=== PATIENT | female | born 1950 | race American Indian/Alaskan Native ===

== ENCOUNTER 2017-03-07 09:33 | Emergency (ER) | payer MEDICARE ==
[2017-03-07 09:49] VITALS: BP 132/65
[2017-03-07 10:07] LABS: Basophils % (Auto) 0.2 % (0.0-1.8); Eosinophils % (Auto) 0.1 % (0.0-4.3); Hematocrit 41.9 % (30.3-42.9); Hemoglobin 13.8 gm/dl (10.1-14.3); Mean Corpuscular HGB Conc 33 % (30-34); Mean Corpuscular Hemoglobin 28 pg (28-32); Mean Corpuscular Volume 85 fl (79-97); Platelet Count 224 K/mm3 (140-440); Red Blood Count 4.94 M/mm3 (3.65-5.03); Red Cell Distribution Width 13.8 % (13.2-15.2); White Blood Count 4.2 K/mm3 (4.5-11.0)
[2017-03-07 10:26] LABS: Anion Gap 19 mmol/L; BUN/Creatinine Ratio 29; Blood Urea Nitrogen 20 mg/dL (7-17); Calcium 8.7 mg/dL (8.4-10.2); Carbon Dioxide 28 mmol/L (22-30); Chloride 93.8 mmol/L (98-107); Glucose 126 mg/dL (65-100); Potassium 3.7 mmol/L (3.6-5.0); Sodium 137 mmol/L (137-145)
[2017-03-07 10:58] LABS: Bacteria,Urine 1+ /HPF (Negative); Bilirubin,Urine NEG (Negative); Blood,Urine NEG (Negative); Ketones,Urine NEG (Negative); Leukocyte Esterase,Urine NEG (Negative); Mucus,Urine FEW /HPF; Nitrite,Urine NEG (Negative); Urobilinogen,Urine < 2.0 mg/dL (<2.0)
[2017-03-07] MEDS ORDERED: ZOFRAN IV ONE (12:08)
[2017-03-07] MEDS ORDERED: PEPCID IV ONE (12:08)
--- NOTE | 2017-03-07 12:08 | Emergency Department Report ---
Chief Complaint: Arrhythmia/Palpitations Stated Complaint: HEART PALPITATIONS Time Seen by Provider: 03/07/17 11:53 - HPI History of Present Illness: Patient is a 66-year-old female who is presenting with epigastric discomfort. Patient states that yesterday she ate at [employer]. Patient has epigastric pain and has had nausea vomiting since. Patient states that this point she is just having dry heaves. Patient states the discomfort in epigastrium is 4 out of 10. Patient states she has some palpitations this morning as well. Patient denies fever denies right upper quadrant pain she denies cough chest pain at this time. - ROS Review of Systems: Review of systems is negative other than those elements in the HPI - Exam Vital Signs: Vital Signs 03/07/17 09:44 Temperature 97.8 F Pulse Rate 87 Respiratory 18 Rate Blood Pressure 132/65 O2 Sat by Pulse 97 Oximetry Physical Exam: Focused physical exam patient's abdomen is mildly tender in the epigastrium no rebound or guarding normal bowel sounds chest clear to auscultation heart tones. Are normal with normal S1-S2 no murmurs gallops or rubs. Patient is alert and oriented 3 and is in no acute distress MSE screening note: Focused history and physical exam performed. Due to findings the following was ordered: Patient will be given on nausea medicine IV fluids basic labs will be checked. Ultrasound of her gallbladder will be done as well. ED Medical Decision Making - Lab Data Result diagrams: 03/07/17 09:52 03/07/17 09:52 ED Disposition for MSE Condition: Stable Referrals: ROBERTO KHALIL MD [Primary Care Provider] - 3-5 Days
[2017-03-07] MEDS ORDERED: NACL 0.9% 1000 ML 1,000 ML IV ONE (12:14)
--- NOTE | 2017-03-07 13:01 | Ultrasound Report ---
RIGHT UPPER QUADRANT ULTRASOUND: The gallbladder is sonolucent with no evidence of stones, polyps or wall thickening. The common duct is normal in caliber. The pancreas, right renal contour, parenchyma and hepatic parenchyma appear normal. IMPRESSION: Normal right upper quadrant ultrasound.
--- NOTE | 2017-03-07 13:03 | Emergency Department Report ---
ED General Adult HPI - General Chief complaint: Arrhythmia/Palpitations Stated complaint: HEART PALPITATIONS Time Seen by Provider: 03/07/17 11:53 Source: patient Mode of arrival: Ambulatory Limitations: No Limitations - History of Present Illness Initial comments: Patient is a 66-year-old -[place] female who presents for reflux 3 days eating fish [email or web address] from [employer] symptoms include heartburn bloating nausea vomiting last nausea and vomiting this a.m. patient is currently tolerating by mouth intake Pt notes nausea and heartburn onset 30 minutes after eating. No hx of MO, CVA or dx of GERD Onset/Timin -: Gradual Location: abdomen Radiation: other (epigastric ) Severity scale (0 -10): 4 Quality: burning Consistency: intermittent Improves with: other (npo) Worsens with: eating Associated Symptoms: nausea/vomiting, other (heart burn ) Treatments Prior to Arrival: none - Related Data Previous Rx's Medication Instructions Recorded Last Taken Type Dicyclomine [Bentyl] 10 mg PO TID #30 bottle 03/07/17 Unknown Rx Famotidine [Pepcid] 20 mg PO BID #60 tablet 03/07/17 Unknown Rx Ondansetron [Zofran Odt] 4 mg PO TID PRN #12 tab.rapdis 03/07/17 Unknown Rx Allergies Allergy/AdvReac Type Severity Reaction Status Date / Time No Known Allergies Allergy Unverified 03/07/17 09:44 ED Review of Systems ROS: Stated complaint: HEART PALPITATIONS Other details as noted in HPI Constitutional: denies: chills, fever Eyes: denies: eye pain, eye discharge, vision change ENT: denies: ear pain, throat pain Respiratory: denies: cough, shortness of breath, wheezing Cardiovascular: chest pain (heartburn ) Endocrine: no symptoms reported Gastrointestinal: abdominal pain, nausea, vomiting. denies: diarrhea, constipation, hematemesis, hematochezia Genitourinary: denies: urgency, dysuria, discharge Musculoskeletal: denies: back pain, joint swelling, arthralgia Skin: denies: rash, lesions Neurological: denies: headache, weakness, paresthesias Psychiatric: denies: anxiety, depression Hematological/Lymphatic: denies: easy bleeding, easy bruising ED Past Medical Hx - Past Medical History Previous Medical History?: Yes Hx Hypertension: Yes - Surgical History Past Surgical History?: Yes Hx Breast Surgery: Yes Additional Surgical History: hysterectomy - Social History Smoking Status: Never Smoker Substance Use Type: Alcohol - Medications Home Medications: Home Medications Medication Instructions Recorded Confirmed Last Taken Type Dicyclomine [Bentyl] 10 mg PO TID #30 bottle 03/07/17 Unknown Rx Famotidine [Pepcid] 20 mg PO BID #60 tablet 03/07/17 Unknown Rx Ondansetron [Zofran Odt] 4 mg PO TID PRN #12 tab.rapdis 03/07/17 Unknown Rx ED Physical Exam - General Limitations: No Limitations General appearance: alert, in no apparent distress - Head Head exam: Present: atraumatic, normocephalic - Eye Eye exam: Present: normal appearance, PERRL, EOMI Pupils: Present: normal accommodation - ENT ENT exam: Present: mucous membranes moist - Neck Neck exam: Present: normal inspection, full ROM. Absent: lymphadenopathy, thyromegaly - Respiratory Respiratory exam: Present: normal lung sounds bilaterally. Absent: respiratory distress, wheezes, rhonchi - Cardiovascular Cardiovascular Exam: Present: regular rate, normal rhythm. Absent: systolic murmur, diastolic murmur, rubs, gallop - GI/Abdominal GI/Abdominal exam: Present: soft, normal bowel sounds - Rectal Rectal exam: Present: deferred - Extremities Exam Extremities exam: Present: normal inspection - Back Exam Back exam: Present: normal inspection, full ROM. Absent: tenderness - Neurological Exam Neurological exam: Present: alert, oriented X3 - Psychiatric Psychiatric exam: Present: normal affect, normal mood - Skin Skin exam: Present: warm, dry, intact, normal color. Absent: rash ED Course Vital Signs 03/07/17 09:44 Temperature 97.8 F Pulse Rate 87 Respiratory 18 Rate Blood Pressure 132/65 O2 Sat by Pulse 97 Oximetry ED Medical Decision Making - Lab Data Result diagrams: 03/07/17 09:52 03/07/17 09:52 Laboratory Tests 03/07/17 03/07/17 03/07/17 09:52 09:52 10:30 WBC 4.2 L RBC 4.94 Hgb 13.8 Hct 41.9 MCV 85 MCH 28 MCHC 33 RDW 13.8 Plt Count 224 Lymph % (Auto) 6.6 L [place] % (Auto) 8.2 H Eos % (Auto) 0.1 Baso % (Auto) 0.2 Lymph # 0.3 L [place] # 0.3 Eos # 0.0 Baso # 0.0 Seg Neutrophils % 84.9 H Seg Neutrophils # 3.6 Sodium 137 Potassium 3.7 Chloride 93.8 L Carbon Dioxide 28 Anion Gap 19 BUN 20 H Creatinine 0.7 Estimated GFR > 60 BUN/Creatinine Ratio 29 Glucose 126 H Calcium 8.7 Troponin T 0.025 Urine Color Yellow Urine Turbidity Clear Urine pH 5.0 Ur Specific [place] 1.027 Urine Protein 100 mg/dl Urine Glucose (UA) Neg Urine Ketones Neg Urine Blood Neg Urine Nitrite Neg Urine Bilirubin Neg Urine Urobilinogen < 2.0 Ur Leukocyte Esterase Neg Urine WBC (Auto) 1.0 Urine RBC (Auto) 4.0 U Epithel Cells (Auto) 1.0 Urine Bacteria (Auto) 1+ Urine Mucus Few 03/07/17 13:42 WBC RBC Hgb Hct MCV MCH MCHC RDW Plt Count Lymph % (Auto) [place] % (Auto) Eos % (Auto) Baso % (Auto) Lymph # [place] # Eos # Baso # Seg Neutrophils % Seg Neutrophils # Sodium Potassium Chloride Carbon Dioxide Anion Gap BUN Creatinine Estimated GFR BUN/Creatinine Ratio Glucose Calcium Troponin T 0.015 Urine Color Urine Turbidity Urine pH Ur Specific [place] Urine Protein Urine Glucose (UA) Urine Ketones Urine Blood Urine Nitrite Urine Bilirubin Urine Urobilinogen Ur Leukocyte Esterase Urine WBC (Auto) Urine RBC (Auto) U Epithel Cells (Auto) Urine Bacteria (Auto) Urine Mucus - EKG Data EKG shows normal: sinus rhythm Rate: normal (the last month) - EKG Data When compared to previous EKG there are: no significant change Interpretation: no acute changes, normal EKG - Radiology Data Radiology results: report reviewed, image reviewed normal gallbladder us no stones no renal calculus - Medical Decision Making Patient is a 66-year-old -[place] female who presents for reflux 3 days eating fish [employer] from [employer] symptoms include heartburn bloating nausea vomiting last nausea and vomiting this a.m. patient is currently tolerating by mouth intake Pt notes nausea and heartburn onset 30 minutes after eating. No hx of MO, CVA or dx of GERD exam: pt appears uncomfortable on initia exam, primary complaint is nausea and vomiting and heartburn "states started after eating that fish from [employer]" pt denies sob no dizziness, lungs clear bilat no wheezing, cv: S1 and S2 no mrg no edema no PND, ekg: NSR, Labs: normal trop neg x 2, heart score: 1, US Gallbladder normal . Plan DC to home. With prescription for H2 peter and antemitic as pt is tolerating po intake without symptoms at this time dizziness is resolved no abdominal pain at this time. Critical care attestation.: If time is entered above; I have spent that time in minutes in the direct care of this critically ill patient, excluding procedure time. ED Disposition Clinical Impression: Nausea & vomiting Qualifiers: Vomiting type: unspecified Vomiting Intractability: non-intractable Qualified Code(s): R11.2 - Nausea with vomiting, unspecified Abdominal pain Qualifiers: Abdominal location: generalized Qualified Code(s): R10.84 - Generalized abdominal pain Disposition: DC-01 TO HOME OR SELFCARE Is pt being admited?: No Does the pt Need Aspirin: No Condition: Good Instructions: Abdominal Pain (ED), Acute Nausea and Vomiting (ED) Prescriptions: Dicyclomine [Bentyl] 10 mg PO TID #30 bottle Famotidine [Pepcid] 20 mg PO BID #60 tablet Ondansetron [Zofran Odt] 4 mg PO TID PRN #12 tab.rapdis PRN Reason: Nausea And Vomiting Referrals: ROBERTO KHALIL MD [Primary Care Provider] - 3-5 Days Forms: Work/School Release Form(ED) Time of Disposition: 14:27
== END 2017-03-07 14:39 | disposition home or self-care (01) ==
LOC: ED 09:33
DX: R11.2 Nausea with vomiting, unspecified (principal); R10.84 Generalized abdominal pain; I10 Essential (primary) hypertension
CPT/HCPCS: 36415; 76705; 80048; 81001; 84484; 85025; 93005; 93010; 96361; 96374; 96375; 99284; J2405; J7030